=== PATIENT | female | born 1950 | race Caucasian/White ===

== ENCOUNTER → 2018-07-28 10:50 | Outpatient (CLI) | payer OTHER, SELFPAY ==
--- NOTE | 2018-07-28 | DI.MRI.S_ITS ---
PROCEDURE: MR HIP RT WO CON INDICATIONS: Pain in right hip TECHNIQUE: Noncontrast coronal T1 spin echo and STIR through the bony pelvis. Coronal and axial T2 fast spin echo with fat saturation, sagittal T1 spin echo, and oblique axial T2 fast spin echo with fat saturation through the hip. COMPARISON: None. FINDINGS: Image quality: Excellent. Bones and joints: Bone marrow of the pelvic ring and proximal femurs show normal signal throughout. No intraosseous lesions or fractures. No avascular necrosis of the femoral heads. Lower lumbar discogenic changes. Tendons and ligaments: The gluteus medius and minimus tendons appear thickened with intrasubstance signal change in keeping with partial rupture and/or superimposed tendinopathy. There is nearby severe trochanteric bursal fluid. Incidentally noted mild left hip abductor insertional tendinopathy , to a much lesser extent, on large field of view pulse sequences. The proximal iliotibial band also appears intact. The iliopsoas tendon appears intact, without adjacent bursal fluid collections or evidence for impingement syndrome. The origin of the hamstring tendon is intact at the ischial tuberosity, as well as the associated sacrotuberous ligament. The straight and reflected heads of the rectus femoris muscle origin appear intact, as well as the conjoint tendon. The ligamentum teres appears intact where visualized. Labrum and cartilage: The anterosuperior acetabular labrum appears frayed and diminutive, although this is probably a chronic degenerative finding. Recommend correlation with exam findings Cartilage surface of the femoral head appears of normal thickness. The alpha angle of the femur is within normal limits at less than 55 degrees. Soft tissues: Visualized muscles demonstrate normal bulk and internal signal. Quadratus femoris muscle demonstrates no internal edema to suggest ischiofemoral impingement. The proximal sciatic neurovascular bundle appears normal adjacent to the hamstring tendons. No free pelvic fluid. Bladder wall thickness is normal. Genitourinary structures and bowel loops appear normal where visualized. IMPRESSION: Partial tear and superimposed tendinopathy involving the right gluteus medius and minimus tendons. Severe right trochanteric bursitis. Dictated by: Serge Walker M.D. on 07/28/2018 at 12:50 Approved by: Serge Walker M.D. on 07/28/2018 at 12:58
== END ==
PROVIDERS: PCP Nurse Practitioner Family; Visit Provider Orthopaedic Surgery
DX: M25.551 Pain in right hip (principal); M70.61 Trochanteric bursitis, right hip; S76.011A Strain of muscle, fascia and tendon of right hip, initial encounter
CPT/HCPCS: 73721

== ENCOUNTER → 2021-08-21 13:21 | Outpatient (CLI) | payer OTHER, SELFPAY ==
--- NOTE | 2021-08-21 | DI.MG.S_ITS ---
BILATERAL DIGITAL DIAGNOSTIC MAMMOGRAM 3D/2D: 08/21/2021 CLINICAL: Short term follow up of the right breast. Comparison is made to exams dated: 06/14/2020 mammogram, 05/08/2020 mammogram - [facility], and 10/09/2012 mammogram - [facility]. There are scattered fibroglandular elements in both breasts. There are grouped dystrophic calcifications in the right breast at 11 o'clock posterior depth. These are not significantly changed. No other significant masses, calcifications, or other findings are seen in either breast. IMPRESSION: PROBABLY BENIGN The grouped dystrophic calcifications in the right breast are probably benign. A follow-up mammogram in 6 months is recommended to demonstrate stability. This exam was interpreted at Station ID: [id number]. NOTE: For mammograms, a report in lay terms will be sent to the patient. Approximately 15% of breast malignancies will not be visualized mammographically. In the management of a palpable breast mass, a negative mammogram must not discourage biopsy of a clinically suspicious lesion. Electronically Signed By: Michaelle junior/:08/21/2021 14:52:42 letter sent: Followup Recommended ACR BI-RADS Category 3: Probably benign 3343F
== END ==
PROVIDERS: PCP Registered Nurse; Referring Provider Registered Nurse; Visit Provider Registered Nurse
DX: R92.8 Other abnormal and inconclusive findings on diagnostic imaging of breast (principal); R92.1 Mammographic calcification found on diagnostic imaging of breast
CPT/HCPCS: 77066; G0279

== ENCOUNTER → 2022-03-05 09:04 | Outpatient (CLI) | payer OTHER, SELFPAY ==
--- NOTE | 2022-03-05 | DI.MG.S_ITS ---
UNILATERAL RIGHT DIGITAL DIAGNOSTIC MAMMOGRAM 3D/2D SHORT-TERM FOLLOW-UP: 03/05/2022 CLINICAL: Short term follow up. Comparison is made to exams dated: 08/21/2021 mammogram - [facility], 06/14/2020 mammogram, and 05/08/2020 mammogram - [facility]. There are scattered areas of fibroglandular density in the right breast (category b / 25%-50% glandular tissue). There is dystrophic calcifications in the right breast at 11 o'clock posterior depth. This is not significantly changed. No other significant masses or calcifications are seen in the breast. IMPRESSION: PROBABLY BENIGN The dystrophic calcification in the right breast is probably benign. A follow-up mammogram in 6 months is recommended to demonstrate stability. Based on the Tyrer Cuzick model (a risk assessment model) the patient's lifetime risk is 3.5% and her 10 year risk is 2.2%. According to the ACR, ACS, and NCCN guidelines, an annual breast MRI exam along with mammogram is recommended if the patient's lifetime risk is 20% or greater. This exam was interpreted at Station ID: [id number]. NOTE: For mammograms, a report in lay terms will be sent to the patient. Approximately 15% of breast malignancies will not be visualized mammographically. In the management of a palpable breast mass, a negative mammogram must not discourage biopsy of a clinically suspicious lesion. Electronically Signed By: Adal Juarez M.D. lc/:03/05/2022 09:38:26 letter sent: Followup Recommended ACR BI-RADS Category 3: Probably benign 3343F
== END ==
PROVIDERS: PCP Registered Nurse; Referring Provider Registered Nurse; Visit Provider Registered Nurse
DX: R92.8 Other abnormal and inconclusive findings on diagnostic imaging of breast (principal); R92.1 Mammographic calcification found on diagnostic imaging of breast
CPT/HCPCS: 77065; G0279

== ENCOUNTER → 2022-12-23 09:51 | Outpatient (CLI) | payer OTHER, SELFPAY ==
--- NOTE | 2022-12-23 | DI.US.S_ITS ---
LIMITED ULTRASOUND OF RIGHT BREAST: 12/23/2022 CLINICAL: Patient returns today to evaluate a focal asymmetry in the right breast. Comparison is made to exams dated: 12/23/2022 mammogram, 08/21/2021 mammogram, 03/05/2022 mammogram - [facility], 05/08/2020 mammogram, 06/14/2020 mammogram - [facility], and 10/09/2012 mammogram - [facility]. Real-time ultrasound of the right breast retroareolar was performed. Major scale images of the real-time examination were reviewed. No significant abnormalities were seen sonographically in the right breast. IMPRESSION: NEGATIVE There is no sonographic evidence of malignancy. There is no abnormality seen in the right breast to correspond with the mammography finding which likely represents normal fibroglandular tissue. The dystrophic calcifications seen on mammogram has shown two years of stability. Return to annual mammogram screening schedule is recommended. This exam was interpreted at Station ID: [id number]. Electronically Signed By: Adal Juarez M.D. lc/:12/23/2022 11:12:56 letter sent: Normal Exam Ultrasound BI-RADS: 1 Negative
--- NOTE | 2022-12-23 | DI.MG.S_ITS ---
BILATERAL DIGITAL DIAGNOSTIC MAMMOGRAM 3D/2D: 12/23/2022 CLINICAL: Late short term follow up. Comparison is made to exams dated: 03/05/2022 mammogram, 08/21/2021 mammogram - [facility], 06/14/2020 mammogram, 05/08/2020 mammogram - [facility], and 10/09/2012 mammogram - [facility]. There are scattered areas of fibroglandular density in both breasts (category b / 25%-50% glandular tissue). There is an asymmetry in the right breast posterior depth central to the nipple seen on the mediolateral oblique view only. This is more prominent. Additionally, there is a benign dystrophic calcification in the right breast at 11 o'clock posterior depth. This is not significantly changed. No other significant masses, calcifications, or other findings are seen in either breast. There has been no significant interval change. IMPRESSION: INCOMPLETE: NEEDS ADDITIONAL IMAGING EVALUATION The asymmetry in the right breast posterior depth central to the nipple seen on the mediolateral oblique view only is indeterminate. An ultrasound is recommended. There is a benign dystrophic calcification in the right breast at 11 o'clock posterior depth. This is not significantly changed. 2y stability established. Based on the Tyrer Cuzick model (a risk assessment model) the patient's lifetime risk is 3.3% and her 10 year risk is 2.3%. According to the ACR, ACS, and NCCN guidelines, an annual breast MRI exam along with mammogram is recommended if the patient's lifetime risk is 20% or greater. This exam was interpreted at Station ID: [id number]. NOTE: For mammograms, a report in lay terms will be sent to the patient. Approximately 15% of breast malignancies will not be visualized mammographically. In the management of a palpable breast mass, a negative mammogram must not discourage biopsy of a clinically suspicious lesion. Electronically Signed By: Adal Juarez M.D. lc/:12/23/2022 11:14:48 ACR BI-RADS Category 0: Incomplete [id number]
== END ==
PROVIDERS: PCP Registered Nurse; Referring Provider Registered Nurse; Visit Provider Registered Nurse
DX: R92.8 Other abnormal and inconclusive findings on diagnostic imaging of breast (principal); R92.1 Mammographic calcification found on diagnostic imaging of breast; N64.89 Other specified disorders of breast
CPT/HCPCS: 76642; 77066; G0279

== ENCOUNTER → 2024-03-25 13:51 | Outpatient (CLI) | payer OTHER, SELFPAY ==
--- NOTE | 2024-03-25 | DI.MG.S_ITS ---
BILATERAL DIGITAL SCREENING MAMMOGRAM 3D/2D WITH CAD: 03/25/2024 CLINICAL: Routine screening. Comparison is made to exams dated: 12/23/2022 mammogram, 08/21/2021 mammogram - [facility], and 05/08/2020 mammogram - [facility]. There are scattered areas of fibroglandular density (category b / 25%-50% glandular tissue). Current study was also evaluated with a Computer Aided Detection (CAD) system. There are benign calcifications in the right breast. No significant masses, calcifications, or other findings are seen in either breast. There has been no significant interval change. IMPRESSION: BENIGN There is no mammographic evidence of malignancy. A 1 year screening mammogram is recommended. Based on the Tyrer Cuzick model (a risk assessment model) the patient's lifetime risk is 3.1% and her 10 year risk is 2.3%. According to the ACR, ACS, and NCCN guidelines, an annual breast MRI exam along with mammogram is recommended if the patient's lifetime risk is 20% or greater. This exam was interpreted at Station ID: [id number]. NOTE: For mammograms, a report in lay terms will be sent to the patient. Approximately 15% of breast malignancies will not be visualized mammographically. In the management of a palpable breast mass, a negative mammogram must not discourage biopsy of a clinically suspicious lesion. Electronically Signed By: Art bray/gary:03/26/2024 16:51:15 letter sent: Normal Exam ACR BI-RADS Category 2: Benign
== END ==
LOC: MAMMO 13:52
PROVIDERS: PCP Registered Nurse; Referring Provider Registered Nurse; Visit Provider Registered Nurse
DX: Z12.31 Encounter for screening mammogram for malignant neoplasm of breast (principal)
CPT/HCPCS: 77063; 77067